=== PATIENT | female | born 1930 | race Caucasian/White ===

== ENCOUNTER 2017-11-29 06:16 | Emergency (ER) | payer MEDICARE ==
[2017-11-29] MEDS ORDERED: MORPHINE SULFATE 10 MG/ML INJ IV ONE (06:42)
[2017-11-29] MEDS ORDERED: ONDANSETRON 4 MG TAB.RAPDIS PO ONE (06:42)
--- NOTE | 2017-11-29 06:48 | ER Document Report ---
ED General - General Stated Complaint: HIP PAIN Time Seen by Provider: 11/29/17 06:24 Mode of Arrival: Medic Information source: Patient, Relative Notes: 87-year-old female with a history of hypertension, CAD, CVA (2008), pacemaker presents via EMS with complaint of right hip pain after a fall at home that occurred just prior to arrival. Patient states that she awoke from bed and needed to use the bathroom and states when she stood up too fast and she lost her footing and fell to the floor. She denies head injury or loss of consciousness. She states she remembers the entire event. She denies any preceding chest pain, palpitations, shortness of breath, diaphoresis, nausea. She states she is been otherwise well. Her granddaughter and daughter at the bedside and states that the she has frequent episodes of leg weakness bilaterally. Her previous CVA left her with chronic confusion, intermittent dysarthria, weakness. Patient states she has otherwise been well. She denies any recent headache, visual changes, fever, nausea, vomiting, chest pain, shortness of breath, abdominal pain, dysuria, black or bloody stools. She is currently only complaining of right hip and upper thigh pain TRAVEL OUTSIDE OF THE [place] IN LAST 30 DAYS: No - HPI Onset: Just prior to arrival Onset/Duration: Sudden Quality of pain: Achy, Throbbing Severity: Moderate Pain Level: 2 Associated symptoms: None Exacerbated by: Movement Relieved by: Remaining still Similar symptoms previously: No Recently seen / treated by doctor: No - Related Data Allergies/Adverse Reactions: nitrofurantoin [From Macrodantin] Allergy (Verified 11/29/17 07:38) Past Medical History - General Information source: Patient, Parent - Social History Smoking Status: Former Smoker Frequency of alcohol use: None Drug Abuse: None Lives with: Family Family History: Reviewed & Not Pertinent Patient has suicidal ideation: No Patient has homicidal ideation: No - Past Medical History Cardiac Medical History: Reports: Hx Coronary Artery Disease, Hx Hypertension, Other - CABG, pacemaker placement Neurological Medical History: Reports: Hx Cerebrovascular Accident Musculoskeltal Medical History: Reports Hx Muscle Weakness Traumatic Medical History: Reports: Hx Fractures - left hip Past Surgical History: Reports: Hx Appendectomy, Hx Cardiac Surgery, Hx Hysterectomy, Hx Pacemaker Review of Systems - Review of Systems Notes: Patient states she has otherwise been well. She denies any recent headache, visual changes, fever, nausea, vomiting, chest pain, shortness of breath, abdominal pain, dysuria, black or bloody stools. She is currently only complaining of right hip and upper thigh pain Physical Exam - Vital signs Vitals: BP Pulse Ox 158/74 H 92 11/29/17 06:21 11/29/17 06:21 Interpretation: Normal - Notes Notes: PHYSICAL EXAMINATION: GENERAL: Well-appearing, well-nourished and in no acute distress. HEAD: Atraumatic, normocephalic. No cephalohematoma, midface stable EYES: Pupils equal round and reactive to light, extraocular movements intact, conjunctiva are normal. ENT: Nares patent, oropharynx clear without exudates. Moist mucous membranes. No epistaxis NECK: Normal range of motion, supple without lymphadenopathy, no vertebral tenderness, no step-offs LUNGS: Breath sounds clear to auscultation bilaterally and equal. No wheezes rales or rhonchi. HEART: Regular rate and rhythm without murmurs ABDOMEN: Soft, nontender, nondistended abdomen. No guarding, no rebound. No masses appreciated. Female : deferred Musculoskeletal: Right hip tender to palpation along the greater trochanter, right anterior femur, no obvious deformity, pelvis stable, no pitting or edema. No cyanosis. NEUROLOGICAL: Cranial nerves grossly intact. Normal speech, normal gait. Normal sensory, motor exams PSYCH: Normal mood, normal affect. SKIN: Warm, Dry, normal turgor, no rashes or lesions noted. Course - Re-evaluation Re-evalutation: Laboratory 11/29/17 11/29/17 11/29/17 06:35 06:35 06:35 WBC 8.2 RBC 4.99 Hgb 14.0 Hct 42.3 MCV 85 MCH 28.1 MCHC 33.1 RDW 14.4 H Plt Count 145 L Seg Neutrophils % 83.8 H Lymphocytes % 8.1 L Monocytes % 6.3 Eosinophils % 1.6 Basophils % 0.2 Absolute Neutrophils 6.9 Absolute Lymphocytes 0.7 Absolute Monocytes 0.5 Absolute Eosinophils 0.1 Absolute Basophils 0.0 PT INR APTT Sodium 140.8 Potassium 4.1 Chloride 102 Carbon Dioxide 33 H Anion Gap 6 BUN 9 Creatinine 0.60 Est GFR ( Amer) > 60 Est GFR (Non-Af Amer) > 60 Glucose 97 Calcium 9.7 Total Bilirubin 0.5 Direct Bilirubin 0.3 Neonat Total Bilirubin Not Reportable Neonat Direct Bilirubin Not Reportable Neonat Indirect Bili Not Reportable AST 32 ALT 35 Alkaline Phosphatase 84 Creatine Kinase 43 CK-MB (CK-2) 1.31 Troponin I < 0.012 Total Protein 6.6 Albumin 3.9 Urine Color Urine Appearance Urine pH Ur Specific [place] Urine Protein Urine Glucose (UA) Urine Ketones Urine Blood Urine Nitrite Urine Bilirubin Urine Urobilinogen Ur Leukocyte Esterase Urine WBC (Auto) Urine RBC (Auto) U Hyaline Cast (Auto) Urine Mucus (Auto) Urine Ascorbic Acid Blood Type Antibody Screen 11/29/17 11/29/17 11/29/17 06:35 07:00 08:00 WBC RBC Hgb Hct MCV MCH MCHC RDW Plt Count Seg Neutrophils % Lymphocytes % Monocytes % Eosinophils % Basophils % Absolute Neutrophils Absolute Lymphocytes Absolute Monocytes Absolute Eosinophils Absolute Basophils PT 14.7 INR 1.09 APTT 31.0 Sodium Potassium Chloride Carbon Dioxide Anion Gap BUN Creatinine Est GFR ( Amer) Est GFR (Non-Af Amer) Glucose Calcium Total Bilirubin Direct Bilirubin Neonat Total Bilirubin Neonat Direct Bilirubin Neonat Indirect Bili AST ALT Alkaline Phosphatase Creatine Kinase CK-MB (CK-2) Troponin I Total Protein Albumin Urine Color YELLOW Urine Appearance CLEAR Urine pH 7.0 Ur Specific [place] 1.010 Urine Protein NEGATIVE Urine Glucose (UA) NEGATIVE Urine Ketones NEGATIVE Urine Blood NEGATIVE Urine Nitrite NEGATIVE Urine Bilirubin NEGATIVE Urine Urobilinogen NEGATIVE Ur Leukocyte Esterase NEGATIVE Urine WBC (Auto) 0 Urine RBC (Auto) 1 U Hyaline Cast (Auto) 1 Urine Mucus (Auto) RARE Urine Ascorbic Acid NEGATIVE Blood Type Cancelled Antibody Screen Cancelled Head CT 11/29/17 06:40 IMPRESSION: No acute findings. Femur X-Ray 11/29/17 06:41 IMPRESSION: Acute right subcapital femoral neck fracture with minimal varus angulation. Report called to the patient's nurse in the emergency room Pelvis X-Ray 11/29/17 06:41 IMPRESSION: Acute right subcapital femoral neck fracture with minimal varus angulation. Report called to the patient's nurse in the emergency room. 11/29/17 06:53 87-year-old female with a history of hypertension, CAD, CVA (2008), pacemaker presents via EMS with complaint of right hip pain after a fall at home that occurred just prior to arrival. Patient states that she awoke from bed and needed to use the bathroom and states when she stood up too fast and she lost her footing and fell to the floor. She denies head injury or loss of consciousness. She states she remembers the entire event. She denies any preceding chest pain, palpitations, shortness of breath, diaphoresis, nausea. She states she is been otherwise well 11/29/17 09:26 [facility] transfer Contacted. Awaiting return call. Family made aware that there may be an additional charge since this is per patient's request and not because a need for higher level of care. 11/29/17 14:14 Patient made aware of her transfer time of 1700. - Vital Signs Vital signs: Temp Pulse Resp BP Pulse Ox 97.9 F 59 L 14 126/61 H 100 11/29/17 06:47 11/29/17 06:47 11/29/17 14:02 11/29/17 14:02 11/29/17 14:02 - Laboratory Result Diagrams: 11/29/17 06:35 11/29/17 06:35 Laboratory results interpreted by me: 11/29/17 11/29/17 06:35 06:35 RDW 14.4 H Plt Count 145 L Seg Neutrophils % 83.8 H Lymphocytes % 8.1 L Carbon Dioxide 33 H Discharge - Discharge Clinical Impression: Closed right hip fracture Qualifiers: Encounter type: initial encounter Qualified Code(s): S72.001A - Fracture of unspecified part of neck of right femur, initial encounter for closed fracture Condition: Good Disposition: [facility]
[2017-11-29 07:04] LABS: ABSOLUTE EOSINOPHILS # (AUTO) 0.1 10^3/uL (0.0-0.6); ABSOLUTE LYMPHOCYTES (AUTO) 0.7 10^3/uL (0.5-4.7); ABSOLUTE MONOCYTES (AUTO) 0.5 10^3/uL (0.1-1.4); ABSOLUTE NEUT (AUTO) 6.9 10^3/uL (1.7-8.2); BASOPHILS % (AUTO) 0.2 % (0-2); EOSINOPHILS % (AUTO) 1.6 % (0-6); HEMATOCRIT 42.3 % (36.0-47.0); LYMPHOCYTES % (AUTO) 8.1 % (13-45); MEAN CORPUSCULAR HEMOGLOBIN 28.1 pg (27.0-33.4); MEAN CORPUSCULAR HGB CONC 33.1 g/dL (32.0-36.0); MEAN CORPUSCULAR VOLUME 85 fl (80-97); MONOCYTES % (AUTO) 6.3 % (3-13); PLATELET COUNT 145 10^3/uL (150-450); RED BLOOD COUNT 4.99 10^6/uL (3.72-5.28); RED CELL DISTRIBUTION WIDTH 14.4 % (11.5-14.0); SEGMENTED NEUTROPHILS % (AUTO) 83.8 % (42-78); TOTAL CELLS COUNTED % (AUTO) 100 %; WHITE BLOOD COUNT 8.2 10^3/uL (4.0-10.5)
[2017-11-29 07:24] LABS: ALANINE AMINOTRANSFERASE 35 U/L (9-52); ALBUMIN 3.9 g/dL (3.5-5.0); ALKALINE PHOSPHATASE 84 U/L (38-126); ANION GAP 6 (5-19); ASPARTATE AMINO TRANSFERASE 32 U/L (14-36); BILIRUBIN,DIRECT 0.3 mg/dL (0.0-0.4); BILIRUBIN,TOTAL 0.5 mg/dL (0.2-1.3); BLOOD UREA NITROGEN 9 mg/dL (7-20); CALCIUM 9.7 mg/dL (8.4-10.2); CARBON DIOXIDE 33 mmol/L (22-30); CHLORIDE 102 mmol/L (98-107); CREATINE KINASE 43 U/L (30-135); GLUCOSE 97 mg/dL (75-110); POTASSIUM 4.1 mmol/L (3.6-5.0); SODIUM 140.8 mmol/L (137-145); TOTAL PROTEIN 6.6 g/dL (6.3-8.2)
--- NOTE | 2017-11-29 07:29 | RADIOLOGY REPORT (SQ) ---
EXAM DESCRIPTION: CT HEAD WITHOUT CLINICAL HISTORY: 87 years Female, fall COMPARISON: None. TECHNIQUE: No contrast. Coronal and sagittal reformat. This exam was performed according to our departmental dose-optimization program, which includes automated exposure control, adjustment of the mA and/or kV according to patient size and/or use of iterative reconstruction technique. FINDINGS: No hemorrhage or infarct. No mass, mass effect, or midline shift. Atherosclerosis. Mild cerebral volume loss. Bone demineralization. 1.8 cm left parietal scalp calcified likely benign granuloma/nodule. Brain and extra-axial structures appear otherwise intact. IMPRESSION: No acute findings.
[2017-11-29 07:30] LABS: INTERNATIONAL RATION (INR) 1.09; PROTHROMBIN TIME 14.7 SEC (11.4-15.4)
[2017-11-29 07:32] LABS: APPEARANCE,URINE CLEAR; BILIRUBIN,URINE NEGATIVE (NEGATIVE); COLOR,URINE YELLOW; GLUCOSE, URINE NEGATIVE (NEGATIVE); KETONES,URINE NEGATIVE (NEGATIVE); LEUKOCYTE ESTERASE,URINE NEGATIVE (NEGATIVE); NITRITE,URINE NEGATIVE (NEGATIVE); PROTEIN,URINE NEGATIVE (NEGATIVE); UROBILINOGEN,URINE NEGATIVE mg/dL (<2.0)
--- NOTE | 2017-11-29 07:33 | RADIOLOGY REPORT (SQ) ---
EXAM DESCRIPTION: CT CERVICAL SPINE WITHOUT CLINICAL HISTORY: 87 years Female, fall COMPARISON: None. TECHNIQUE: No contrast. Coronal and sagittal reformat. This exam was performed according to our departmental dose-optimization program, which includes automated exposure control, adjustment of the mA and/or kV according to patient size and/or use of iterative reconstruction technique. FINDINGS: Mild dextroconvexity. 0.9 cm nonspecific sclerotic lesion of the left C7 transverse process. Mild disc desiccation, bony demineralization, mild spondylosis. Moderate straightening/loss of lordosis. 0.3 cm degenerative C7 anterolisthesis. Normal vertebral heights. Left cardiac stimulation device with leads. Sternotomy. Atherosclerosis. Unenhanced nuchal soft tissues, inferior cranium, and upper thorax appear otherwise grossly intact. Impression: No acute findings.
[2017-11-29 07:35] LABS: CREATINE KINASE MB 1.31 ng/mL (<4.55)
[2017-11-29 07:38] LABS: TROPONIN I < 0.012 ng/mL
[2017-11-29] MEDS ORDERED: FENTANYL CITRATE INJ/PF 100 MCG/2 ML AMPUL IV ONE ×3 (07:45→16:13)
--- NOTE | 2017-11-29 09:01 | RADIOLOGY REPORT (SQ) ---
EXAM DESCRIPTION: FEMUR RIGHT COMPLETED DATE/TIME: 11/29/2017 7:32 am REASON FOR STUDY: fall COMPARISON: AP pelvis same date NUMBER OF VIEWS: Two views. TECHNIQUE: Two radiographic images acquired of the right femur to include hip and knee in at least o ne projection. LIMITATIONS: None. FINDINGS: MINERALIZATION: Osteoporotic BONES: Acute subcapital right femoral neck fracture with minimal varus angulation. SOFT TISSUES: Posterior upper right thigh hematoma OTHER: No other significant finding. IMPRESSION: Acute right subcapital femoral neck fracture with minimal varus angulation. Report call ed to the patient's nurse in the emergency room COMMENT: Matrix TECHNICAL DOCUMENTATION: JOB ID: [id number] [employer]- All Rights Reserved Reading location - IP/workstation name: [email or web address]
--- NOTE | 2017-11-29 09:03 | RADIOLOGY REPORT (SQ) ---
EXAM DESCRIPTION: PELVIS AP COMPLETED DATE/TIME: 11/29/2017 7:32 am REASON FOR STUDY: fall COMPARISON: Right femur films same date NUMBER OF VIEWS: One view TECHNIQUE: AP Pelvis LIMITATIONS: None. FINDINGS: MINERALIZATION: Osteoporotic HIPS: On the right side, an acute right subcapital femoral neck fracture is present with minimal varu s angulation. Left hip replacement in good alignment. Distal most tip of the left femoral component is not include d in the field of view. PELVIS AND SACRUM: No acute fracture or dislocation. No worrisome bone lesions. PUBIS AND ISCHIUM: No acute fracture. LOWER LUMBAR SPINE: Advanced facet arthropathy at L4-5 and L5-S1. SOFT TISSUES: No findings. OTHER: Hutson catheter in the bladder. Right lower pole intrarenal nonobstructive 15 mm calculus IMPRESSION: Acute right subcapital femoral neck fracture with minimal varus angulation. Report call ed to the patient's nurse in the emergency room. COMMENT: [employer] TECHNICAL DOCUMENTATION: JOB ID: [id number] [employer]- All Rights Reserved Reading location - IP/workstation name: [email or web address]
--- NOTE | 2017-11-29 13:32 | EKG REPORT ---
SEVERITY:- ABNORMAL ECG - A-V DUAL-PACED RHYTHM WITH SOME INHIBITION LEFT BUNDLE BRANCH BLOCK : Confirmed by: Chucho Soto MD 29-Nov-2017 13:30:56
[2017-11-29 16:54] VITALS: BP 141/63
== END 2017-11-29 16:45 | disposition short-term general hospital (02) ==
LOC: ER 06:16
DX: S72.011A Unspecified intracapsular fracture of right femur, initial encounter for closed fracture (principal); W18.39XA Other fall on same level, initial encounter; Y93.89 Activity, other specified; Y92.003 Bedroom of unspecified non-institutional (private) residence as the place of occurrence of the external cause; I10 Essential (primary) hypertension; I25.10 Atherosclerotic heart disease of native coronary artery without angina pectoris; Z95.0 Presence of cardiac pacemaker; Z87.891 Personal history of nicotine dependence
CPT/HCPCS: 93005; 96376; 99285; 96374; 96375; 86900; 86901; 36415; 82553; 86870; 86850; 82550; 85025; 85610; 85730; 80053; 81001; 84484; 86902 ×3; 73552; 72170; 70450; 72125; 93010; A9270; J3010; J2270; S0119